=== PATIENT | female | born 1975 | race Caucasian/White ===

== ENCOUNTER 2023-10-02 23:26 | Inpatient (IN) | payer OTHER, SELFPAY ==
[2023-10-02 18:26] VITALS: BP 134/79
[2023-10-02 18:29] VITALS: BMI 29.8
[2023-10-02 19:08] LABS: % Basophils 1.1 % (0-2); % Eosinophils 5.3 % (0-6); % Immature Granulocytes 0.4 % (0-0.5); % Lymphocytes 20.9 % (20.5-51.1); % Monocytes 7.3 % (1.7-9.3); Absolute Basophils 0.1 10^3/uL (0-0.2); Absolute Eosinophils 0.6 10^3/uL (0-0.7); Absolute Immature Granulocytes 0.1 10^3/uL (0-0.05); Absolute Lymphocytes 2.4 10^3/uL (1.2-3.4); Absolute Monocytes 0.8 10^3/uL (0.1-0.6); Absolute Neutrophils 7.4 10^3/uL (1.4-6.5); Hematocrit 33.7 % (37.0-47.0); Hemoglobin 10.9 g/dL (12.0-16.0); Mean Corp Hgb Conc. 32.3 g/dL (33.0-37.0); Mean Corpuscular Hgb 27.6 pg (27.0-31.0); Mean Corpuscular Volume 85.3 fL (81.0-99.0); Nucleated Red Blood Cells % 0 %; Platelet Count 440 10^3/uL (130-400); Red Blood Cell Count 3.95 10^6/uL (4.20-5.40); Red Cell Dist. Width 13.9 % (11.5-14.5); White Blood Cell Count 11.4 10^3/uL (4.8-10.8)
[2023-10-02 19:20] LABS: Lactic Acid 1.6 mmol/L (0.7-2.0)
[2023-10-02 19:22] LABS: ALT (SGPT) 23 U/L (0-35); AST (SGOT) 22 U/L (14-36); Albumin 4.1 g/dl (3.5-5.0); Alkaline Phosphatase 106 U/L (38-126); Blood Urea Nitrogen 11 mg/dl (7-17); Carbon Dioxide 25 mmol/L (22-30); Chloride 102 mmol/L (98-107); Estimated Creatinine Clearance 95 ml/min; Glucose 150 mg/dl (70-99); Potassium 4.1 mmol/L (3.5-5.1); Sodium 134 mmol/L (135-145); Total Bilirubin 0.4 mg/dl (0.2-1.3); Total Protein 7.1 g/dl (6.3-8.2); eGFR > 60.00
--- NOTE | 2023-10-02 22:12 | ED.GENMED ---
History of Present Illness
<KENRICK Daugherty - Last Filed: 10/02/23 22:35>
General
Chief Complaint: Skin Problem
Source: patient and significant other
Exam Limitations: none
Time Seen by Provider: 10/02/23 21:57
Nursing documentation reviewed up to this point in time: agreed with
Travel History
Have you had any contact with someone who has COVID-19?: No
Do you have any symptoms of coronavirus? Fever > 100 degrees, chills, cough, shortness of breath, sore throat, loss of taste or smell, muscle aches, or headache?: No
History of Present Illness
History of Present Illness:
This is a 48 year old female with a PMH of breast cancer and right sided mastectomy presenting to the ED with her complaining of surgical site pain. Pt states she was diagnosed with R sided breast cancer in late May 2023 and she had her
mastectomy on 09/05/23 and her first 2 weeks of recovery went well. She notes last week she began having increasing soreness around her SEVERINO drain site. The pain began to worsen over a couple of days making it difficult for her to move. Pt states she
was started on Bactrim last Saturday (5 days ago) and saw her plastic surgeon this AM. Plastics tried to 'drain the site' but were unable to do so and recommended patient go to the [facility] for IV Antibiotics. Pt states she came here due to the
proximity of her home and she has had prior bad experiences with the [facility]. Pt has been taking Gabapentin daily and tylenol around the clock. Her last dose was at 5pm today. Pt is also have mid chest pain and thinks her wire coating operator metal might have
shifted. She denies any fever, chills, SOB, drainage from the surgical site, itching, abdominal pain, or vomiting.
Pt has a history of blood clots (4 years ago) for which she was on eliquis. She denies tobacco or alcohol use and uses medical marijuana but she has not taken it recently.
Past History
<KENRICK Daugherty - Last Filed: 10/02/23 22:35>
Past History
ED Past Medical History: Asthma, Cancer (R sided breast cancer), Psychiatric (ADHD, A/D) and Other (PE, migraines, IBS)
ED Past Surgical History: Gynecological (R sided mastectomy) and Tonsilectomy
Patient has exhibited threatening behavior?: No
Social History
Tobacco: Non-smoker
Alcohol: None
Drug: Marijuana
Personal:
Living: with family
Family History
Family History: Diabetes, Hypertension, CAD and Cancer (Mother: breast); Negative Early CAD
Review of Systems
<Arya Cano [facility] - Last Filed: 10/02/23 22:35>
Review of Systems
Allergies reviewed?: Yes
Other source history: family
Constitutional: Reports no symptoms; Denies fever or chills
Respiratory: Reports no symptoms; Denies trouble breathing
Cardiac: Reports no symptoms; Denies chest pain
ABD/GI: Denies abdominal pain or vomiting
Skin: Reports rash; Denies itching
Psychiatric: Reports no symptoms
Phy Exam
<Arya Cano [facility] - Last Filed: 10/02/23 22:35>
General Physical Exam
General Presentation: well appearing and mild distress
General age: appears stated age
General Skin: warm and dry
General Habitus: normal
General Mental: alert
General Hydration: appears well hydrated
ENT Exam
ENT Exam: pharynx normal and normocephalic
Cardiovascular Exam
Cardiovascular Exam: regular rate/rhythm, no edema, no murmur and normal peripheral pulses
Heart Sounds: normal
Pulmonary Exam
Pulmonary Exam: lungs clear, no respiratory distress, no rales, no crackles, no rhonchi, no wheezing and no cough
Oxygen Status: room air
Cough: no cough
Gastrointestinal Exam
Gastrointestinal Exam: normal bowel sounds, non tender, soft and non distended
Palpation: generalized: No tenderness
Neurological Exam
Neurological Exam: alert and oriented x3
Musculoskeletal Exam
Musculoskeletal Exam: no edema
Skin Exam
Skin Exam: warm/dry, erythema, redness, tenderness and warmth
Psychiatric Exam
Psychiatric Exam: normal mood/affect
Course
<KENRICK Daugherty - Last Filed: 10/02/23 22:35>
Orders/Labs/Results
Orders:
Orders
10/02/23 18:48
Complete Blood Count/With Diff Urgent
Comprehensive Metabolic Panel Urgent
Glycohemoglobin (HgbA1c) Urgent
Lactic Acid Q4H
Comment: ON ICE, CANCEL 2ND ORDER IF FIRST LACTIC ACID LEVEL <2
Blood Culture Q30M
[place] Source: Blood/Venous
Specimen Description:
Comment: FROM 2 SEPARATE SITES
10/02/23 22:32
0.9% Sodium Chloride 1000 ml [Nss] 1,000 ml IV BOLUS
Gabapentin [Neurontin] 600 mg PO NOW STA
Ketorolac [Toradol] 30 mg IV NOW STA
10/02/23 22:34
US Breast Right Ltd Urgent
Comment:
Reason For Exam: s/p mastectomy 09/05/23-worsening cellulitis
10/02/23 22:44
CR Chest - 2 Views Urgent
Comment:
Reason For Exam: R mastectomy site cellulitis, R chest pain
10/02/23 23:00
Piperacillin/Tazo 4.5 Gram [Zosyn] 4.5 gram in 100 ml IV NOW
Vancomycin [Vancocin] 2,000 mg 0.9% Sodium Chloride 500 ml [Nss] 500 ml IV NOW
10/02/23 23:13
Add On- LAB Urgent
Tests Added?: HgbA1c
10/02/23 23:32
Blood Culture Q30M
[place] Source: Blood/Venous
Specimen Description:
Comment: FROM 2 SEPARATE SITES
Abnormal Lab Results
10/02/23
18:48
WBC 11.4 H 10^3/uL
(4.8-10.8)
RBC 3.95 L 10^6/uL
(4.20-5.40)
Hgb 10.9 L g/dL
(12.0-16.0)
Hct 33.7 L %
(37.0-47.0)
MCHC 32.3 L g/dL
(33.0-37.0)
Plt Count 440 H 10^3/uL
(130-400)
Abs Immat Gran (auto) 0.1 H 10^3/uL
(0-0.05)
Absolute Neuts (auto) 7.4 H 10^3/uL
(1.4-6.5)
Absolute Monos (auto) 0.8 H 10^3/uL
(0.1-0.6)
Sodium 134 L mmol/L
(135-145)
Glucose 150 H mg/dl
(70-99)
10/02/23 18:48
10/02/23 18:48
Vital Signs
Initial and Last Documented VS:
Initial Vital Signs
Temp Pulse Resp BP Pulse Ox
98.5 F 101 20 134/79 98
10/02/23 18:26 10/02/23 18:26 10/02/23 18:26 10/02/23 18:26 10/02/23 18:26
Last Documented Vital Signs
Temp Pulse Resp BP Pulse Ox
97.6 F 96 18 124/78 95
10/03/23 00:33 10/03/23 00:33 10/03/23 00:33 10/03/23 00:33 10/03/23 00:33
<Lzi Rooney, DO - Last Filed: 10/03/23 01:34>
Orders/Labs/Results
Orders:
Orders
10/02/23 18:48
Complete Blood Count/With Diff Urgent
Comprehensive Metabolic Panel Urgent
Glycohemoglobin (HgbA1c) Urgent
Lactic Acid Q4H
Comment: ON ICE, CANCEL 2ND ORDER IF FIRST LACTIC ACID LEVEL <2
Blood Culture Q30M
[place] Source: Blood/Venous
Specimen Description:
Comment: FROM 2 SEPARATE SITES
10/02/23 22:32
0.9% Sodium Chloride 1000 ml [Nss] 1,000 ml IV BOLUS
Gabapentin [Neurontin] 600 mg PO NOW STA
Ketorolac [Toradol] 30 mg IV NOW STA
10/02/23 22:34
US Breast Right Ltd Urgent
Comment:
Reason For Exam: s/p mastectomy 09/05/23-worsening cellulitis
10/02/23 22:44
CR Chest - 2 Views Urgent
Comment:
Reason For Exam: R mastectomy site cellulitis, R chest pain
10/02/23 23:00
Piperacillin/Tazo 4.5 Gram [Zosyn] 4.5 gram in 100 ml IV NOW
Vancomycin [Vancocin] 2,000 mg 0.9% Sodium Chloride 500 ml [Nss] 500 ml IV NOW
10/02/23 23:13
Add On- LAB Urgent
Tests Added?: HgbA1c
10/02/23 23:32
Blood Culture Q30M
[place] Source: Blood/Venous
Specimen Description:
Comment: FROM 2 SEPARATE SITES
Abnormal Lab Results
10/02/23
18:48
WBC 11.4 H 10^3/uL
(4.8-10.8)
RBC 3.95 L 10^6/uL
(4.20-5.40)
Hgb 10.9 L g/dL
(12.0-16.0)
Hct 33.7 L %
(37.0-47.0)
MCHC 32.3 L g/dL
(33.0-37.0)
Plt Count 440 H 10^3/uL
(130-400)
Abs Immat Gran (auto) 0.1 H 10^3/uL
(0-0.05)
Absolute Neuts (auto) 7.4 H 10^3/uL
(1.4-6.5)
Absolute Monos (auto) 0.8 H 10^3/uL
(0.1-0.6)
Sodium 134 L mmol/L
(135-145)
Glucose 150 H mg/dl
(70-99)
10/02/23 18:48
10/02/23 18:48
Vital Signs
Initial and Last Documented VS:
Initial Vital Signs
Temp Pulse Resp BP Pulse Ox
98.5 F 101 20 134/79 98
10/02/23 18:26 10/02/23 18:26 10/02/23 18:26 10/02/23 18:26 10/02/23 18:26
Last Documented Vital Signs
Temp Pulse Resp BP Pulse Ox
97.6 F 96 18 124/78 95
10/03/23 00:33 10/03/23 00:33 10/03/23 00:33 10/03/23 00:33 10/03/23 00:33
<Liz Rooney, DO - Last Filed: 10/03/23 01:34>
*Radiology
Radiology exam reviewed: preliminary read by ED provider (Chest x-ray shows rounded tissue wire coating operator metal right anterior chest wall. Surgical drain lateral chest wall. Lungs are clear. No pleural effusion.) and radiology read reviewed (Right breast
ultrasound shows mild fluid surrounding the right lateral aspect of the wire coating operator metal which may be postsurgical fluid such as seroma. There is no evidence of abscess. The tissue is diffusely edematous.)
*Pulse Oximetry
Patient hypoxic: no
*Critical Care Note
Total Time (30-74mins, 75-104mins- exclusive of procedures): Not Applicable
ED Attending Note
<KENRICK Daugherty - Last Filed: 10/02/23 22:35>
-
Portions of this chart may have been created with voice recognition software.� Occasional wrong word or��sound alike� substitutions may have occurred due to the inherent limitations of voice recognition software.
<Liz Rooney DO - Last Filed: 10/03/23 01:34>
ED Attending Note
Patient seen and examined by attending physician: Yes
I performed the substantive portion of visit, reviewed & personally made and approve the management plan that is documented in note by myself or BERTRAM.: Yes
I performed a history and physical exam of patient and discussed management with resident, I reviewed resident's note and agree with documented findings and plan of care.: Yes
ED Attending Note:
This is a 48-year-old female who has history of right breast cancer, diagnosed June 2023. She follows with specialist at [facility] and underwent right breast mastectomy with wire coating operator metal placement and axillary lymph node sampling
September 05, 2023. A SEVERINO drain has been present since initial surgery. Patient states for the first 2 weeks she was doing well but over the past 2 weeks she has had increased pain about the mastectomy site with onset of redness at her incision site
that began 5 days ago. She called her surgeon and was started on Bactrim 4 days ago. Despite initiation of oral antibiotic she continues with increasing pain and marked increase in local erythema about the right breast mastectomy site.
She has had increased drainage from her SEVERINO drain approximately 40 to 50 mL/day, primarily clear drainage.
She has not noticed a fever but has been taking Tylenol [id number] for pain. Along with this she has been taking twice daily gabapentin that was started prior to surgery.
She tends to avoid NSAIDs due to history of GERD but notes that she is allowed to take NSAIDs, sparingly and with food.
She denies cough nor shortness of breath but does admit to increased pain right chest wall with deep breath.
No abdominal pain, no nausea nor vomiting, no diarrhea nor constipation.
She was evaluated by PRETZEL PACKER at her plastic surgeons office today. Attempt at needle drainage superior to mastectomy incision was apparently unsuccessful. She was recommended to go to the ER for further evaluation and initiation of IV antibiotics.
Patient admits that she was recommended to go to [facility] but elected to come to [place] due to closer to her home.
She did speak with plastic surgeon on-call this evening around 5 PM, Dr. Dedra Richards, who was aware that patient was heading to [place] and provided contact information #[phone]. Patient's primary plastic surgeon is Dr. Garcia.
48-year-old woman appears her stated age, awake and alert, pleasant, appears in mild distress related to pain. Easily communicative. is accompanying. She is afebrile.
HEENT: Oral mucosa is moist. No rhinorrhea.
Neck is supple, nontender, no adenopathy.
Heart is regular rate and rhythm, no murmur nor rub.
Chest wall: There is a dry and intact horizontal right mastectomy incision with global surrounding erythema, 19 cm in width by 12 cm in height. This area is moderately warm to touch and exquisitely tender to palpation. There is moderate global
firmness, no definitive palpable areas of fluctuance. There is no drainage from the wound. There is mild tenderness to the axilla but no definitive axillary adenopathy and no lymphangitis.
There is a SEVERINO drain exiting right lateral chest wall inferior to the right breast incision site. There is very minimal erythema at SEVERINO drain orifice but no drainage from the site. There is patchy erythema right lateral flank consistent with focal
tape sensitivity.
Abdomen: Soft, nondistended, nontender.
Extremities without clubbing or cyanosis nor edema, peripheral pulses are full and equal, nontender.
Skin is warm and dry, normal color. Good turgor.
No focal neurodeficits, gait is steady.
History and exam most consistent with postop wound infection, cellulitis. Concern for seroma formation/infected seroma thus will send for local ultrasound.
Labs show mildly elevated white blood cell count of 11.4. Mild anemia, hemoglobin of 10.9. Lactic acid normal at 1.6.
Chemistries are unremarkable save for mildly elevated glucose of 150. Patient reports no history of diabetes nor diagnosis of impaired fasting glucose. She was noted to have mildly elevated glucose during ED visit December 2022. Will check hemoglobin
A1c for completeness sake�concern for impaired fasting glucose which would adversely affect healing and increased risk of infection.
As patient has clearly failed outpatient antibiotics she will require IV antibiotics and acute hospitalization.
With recent hospitalization 1 month ago must consider potential MRSA, potential resistant bacteria thus will initiate broad-spectrum antibiotics.
10/02/2023 2308 PM
Return phone call from plastic surgeon from [facility] on-call, Dr. Dedra Richards. She agrees with broad-spectrum antibiotic, Zosyn and vancomycin due to recent hospitalization.
If, at some point, patient requires surgical intervention, recommend transfer to [facility]. Off-hours contact information for plastic surgery as above #[phone]. Contact information for plastics during daytime hours
#[phone]. Patient's primary plastic surgeon is Dr. Garcia.
Discharge Plan
Departure
Patient Disposition: Admit
Date of Disposition: 10/02/23
Time of Disposition: 23:10
Admit to: Med/Surg
Admit to doctor: [facility]
Presentation/result/management discussed w/ accepting MD/DO: Hospitalist
Discharge Problem:
postoperative mastectomy cellulitis
Interventions
Interventions:
*Risk Screen - Suicide Last Done: 10/02/23 18:29
*General Assessment Last Done: 10/03/23 00:18
*Neglect/Abuse Screening Last Done: 10/02/23 18:29
ED- Fall Risk Assessment Last Done: 10/03/23 00:19
*ED COVID-19 Vaccine History Last Done: 10/02/23 18:29
*Nursing Disposition Last Done: 10/03/23 00:18
ED-Skin Assessment Last Done: 10/02/23 22:34
Discharge Date and Time
Discharge Date/Time: 10/03/23 00:19
[2023-10-02 22:29] VITALS: BP 130/74
[2023-10-02] MEDS: TORADOL 30 MG IV (22:36)
[2023-10-02] MEDS: NSS 1000 IV (22:37)
[2023-10-02] MEDS: NEURONTIN 600 MG PO (22:37)
--- NOTE | 2023-10-02 23:32 | HPS.HSE ---
Family Physician
-
Family Physician: PHILIPP Dumont
Chief Complaint
-
breast pain
History of Present Illness
48 year-old female with past medical history of breast cancer status post right-sided mastectomy, ADHD, hypertension, asthma, pulmonary embolism 4 years ago on Eliquis, iron deficiency anemia migraines, IBS, anxiety/depression, GERD, presenting with
right chest wall pain. She was diagnosed with right-sided breast cancer in May 2023 and had mastectomy on 09/05/2023 with inventory control/shipping receiving and her first 2 weeks of recovery went well. 2 weeks ago she noticed pain at the site of the SEVERINO drain and
increased drainage. Pain began to worsen making it difficult for her to move The patient notes that the site of the mastectomy became more red although she has no sensation there. . She was started on Bactrim 5 days ago and saw her plastic
surgeon this morning. Plastic surgeon tried to drain the site but were unable to do so and recommended patient go to the [facility] emergency room for IV antibiotics but decided to come here. She has been taking gabapentin daily. She has some chest
pain and thinks that the inventory control/shipping receiving may have shifted. She denies any fevers or chills, shortness of breath, drainage from surgical site, itching, abdominal pain or vomiting.
She denies smoking or alcohol use. She uses medical marijuana but not recently.
Medical History
Past Medical History
Past Medical History: Reports Other (breast cancer status post right-sided mastectomy, ADHD, hypertension, asthma, pulmonary embolism 4 years ago on Eliquis, iron deficiency anemia migraines, IBS, anxiety/depression, GERD)
Past Surgical History: Reports None
Social History
Tobacco: Non-smoker
Alcohol: None
Drug: None
Family History
Family History: Not pertinent
Allergies / Home Medications
Allergies reflects when Allergies were last updated in [facility].
Home Medications with original date entered in [facility]
Allergy/Medication List:
Allergies
Allergy/AdvReac Type Severity Reaction Status Date / Time
indoor/outdoor hay fever Allergy sneezing/itchy Uncoded 10/02/23 18:30
eyes
pets Allergy sneezing/itchy Uncoded 10/02/23 18:30
eyes
tree fruit Allergy throat Uncoded 10/02/23 18:30
swells
tree nuts Allergy throat Uncoded 10/02/23 18:30
Swelling
Home Medications
amlodipine 5 mg tablet 5 mg PO DAILY Blood pressure 12/19/21
atomoxetine 80 mg capsule (Strattera) 80 mg PO DAILY ADD 12/19/21
buspirone 10 mg tablet 30 mg PO BID anxiety 12/19/21
cetirizine 10 mg tablet 10 mg PO DAILY SKIN CONDITION FROM ALLERGIES 12/20/21
lamotrigine 150 mg tablet (Lamictal) 300 mg PO HS Seizures 12/20/21
levalbuterol tartrate 45 mcg/actuation aerosol inhaler 1 puff PO Q4HPRN PRN SHORTNESS OF BREATH 12/20/21
bupropion HCl 150 mg 24 hr tablet, extended release 150 mg PO DAILY 12/22/21
dexlansoprazole 60 mg capsule,biphase delayed release 60 mg PO DAILY 10/22/22
famotidine 40 mg tablet 40 mg PO DAILY 10/22/22
Review of Systems
-
History Source: Patient
A 12 point ROS was completed and negative except as noted: Yes
Constitutional: Reports No Symptoms
EENT: Reports No Symptoms
Respiratory: Reports No Symptoms
Cardiac: Reports No Symptoms
Abdomen/GI: Reports No Symptoms
: Reports No Symptoms
Musculoskeletal: Reports No Symptoms
Skin: Reports Other (erythema of mastectomy site )
Neurological: Reports No Symptoms
Endocrine: Reports No Symptoms
Hematologic/Lymphatic: Reports No Symptoms
Psych: Reports No Symptoms
Physical Exam
Vital Signs
Vital Signs
Temp Pulse Resp BP Pulse Ox
98.5 F 97 19 130/74 98
10/02/23 18:26 10/02/23 22:45 10/02/23 22:45 10/02/23 22:29 10/02/23 18:26
Physical Exam
General: Well Developed, Well Nourished and No Apparent Distress
HEENT: NormoCephalic, Moist mucous membranes and Atraumatic
Respiratory: Clear
Cardiac: S1/S2 and Regular Rhythm; No Murmur or Rub
GI: Soft, Non Tender, Non Distended and Normal Bowel Sounds; No Organomegaly
Rectal: Deferred by Provider
Musculoskeletal: No Clubbing, No Cyanosis and No Edema
Skin: No Rash
Neuro: Nonfocal/grossly intact
Laboratory Results
-
10/02/23 18:48
10/02/23 18:48
Laboratory Results
Lactic Acid Cancelled 10/02/23 22:45
Total Bilirubin 0.4 mg/dl (0.2-1.3) 10/02/23 18:48
AST 22 U/L (14-36) 10/02/23 18:48
ALT 23 U/L (0-35) 10/02/23 18:48
Alkaline Phosphatase 106 U/L (38-126) 10/02/23 18:48
Data Reviewed
-
Lab Data: Labs Reviewed by me
Old Records: Reviewed
Impression/Plan
-
IMPRESSION:
PLAN:
# Cellulitis of right breast
# Right-sided breast cancer status post recent mastectomy with inventory control/shipping receiving placed/SEVERINO drain
-Breast ultrasound pending
-CXR pending
-ER spoke with plastic surgeon on-call from [facility] who recommended broad-spectrum antibiotics with vancomycin/Zosyn
-Contact information listed in ER note
-Check blood cultures
-Vancomycin/Zosyn
-Tylenol, Toradol, Dilaudid as needed for pain
ADHD
-Continue atomoxetine
Essential hypertension
-Continue amlodipine
Iron deficiency anemia
-Hemoglobin at baseline
Asthma
-Continue inhalers
History of pulmonary embolism
History of migraines
IBS
Anxiety/depression
-Continue buspirone, bupropion
-Continue Lamictal
GERD
-Continue PPI, famotidine
Full code
DVT prophylaxis�Eliquis
Regular diet
[2023-10-02] MEDS: ZOSYN 100 IV (23:36)
[2023-10-03 00:33] VITALS: BP 124/78
[2023-10-03 00:34] VITALS: BMI 30.3
[2023-10-03] MEDS: TYLENOL 650 MG PO ×2 (01:18→15:48)
--- NOTE | 2023-10-03 01:20 | PTCARENOTE ---
Pt arrived to unit from ED and ambulated independently from stretcher to bed. Pt is AAOx3 with 2/10 pain to right abdomen throughout/front of head. VS on admission stable. Pt oriented to room, call brown within reach. PRN Tylenol provided to pt.
Will continue to monitor.
[2023-10-03] MEDS: VANCOCIN 300 MG IV (02:05)
[2023-10-03] MEDS: VANCOCIN 300 ML IV (02:05)
[2023-10-03] MEDS: ZOSYN 50 IV ×3 (05:54→17:13)
[2023-10-03 07:00] VITALS: BP 133/76
[2023-10-03 07:14] LABS: % Eosinophils 8.2 % (0-6); % Immature Granulocytes 0.4 % (0-0.5); % Lymphocytes 26.3 % (20.5-51.1); % Monocytes 8.5 % (1.7-9.3); % Neutrophils 55.6 % (42.2-75.2); Absolute Basophils 0.1 10^3/uL (0-0.2); Absolute Eosinophils 0.8 10^3/uL (0-0.7); Absolute Lymphocytes 2.4 10^3/uL (1.2-3.4); Absolute Monocytes 0.8 10^3/uL (0.1-0.6); Absolute Neutrophils 5.1 10^3/uL (1.4-6.5); Hematocrit 30.3 % (37.0-47.0); Hemoglobin 10.1 g/dL (12.0-16.0); Mean Corp Hgb Conc. 33.3 g/dL (33.0-37.0); Mean Corpuscular Hgb 28.1 pg (27.0-31.0); Mean Corpuscular Volume 84.2 fL (81.0-99.0); Mean Platelet Volume 9.7 fL (7.4-10.4); Nucleated Red Blood Cells % 0 %; Platelet Count 314 10^3/uL (130-400); Red Cell Dist. Width 13.6 % (11.5-14.5); White Blood Cell Count 9.2 10^3/uL (4.8-10.8)
[2023-10-03 07:44] LABS: ALT (SGPT) 19 U/L (0-35); AST (SGOT) 24 U/L (14-36); Albumin 3.3 g/dl (3.5-5.0); Alkaline Phosphatase 103 U/L (38-126); Blood Urea Nitrogen 12 mg/dl (7-17); Calcium 8.4 mg/dl (8.4-10.2); Carbon Dioxide 21 mmol/L (22-30); Chloride 106 mmol/L (98-107); Estimated Creatinine Clearance 112 ml/min; Glucose 86 mg/dl (70-99); Potassium 4.5 mmol/L (3.5-5.1); Sodium 133 mmol/L (135-145); Total Bilirubin 0.4 mg/dl (0.2-1.3); Total Protein 6.1 g/dl (6.3-8.2); eGFR > 60.00
[2023-10-03] MEDS: BUSPAR 30 MG PO ×2 (08:02→21:11)
[2023-10-03] MEDS: ZOFRAN 4 MG IV ×3 (08:02→23:53)
[2023-10-03] MEDS: NORVASC 5 MG PO (08:03)
[2023-10-03] MEDS: NEURONTIN 600 MG PO ×2 (08:03→21:11)
[2023-10-03] MEDS: WELLBUTRIN XL (24 hour extended release) 300 MG PO (08:03)
[2023-10-03] MEDS: PROTONIX 40 MG PO (08:03)
--- NOTE | 2023-10-03 08:49 | PHA.VAN.IN ---
Assessment
- Assessment
Renal Function: Appears similar to baseline
Concomitant Antimicrobials: piperacillin/tazobactam
AUC Dosing Plan
- Dosing Variables
Dosing Weight (kg): 78
Dosing CrCl (ml/min): 112
Vd coefficient (L/kg): 0.7
- Empiric Dosing
Initial / Loading Dose: 1500mg - 10/03 02:05
Maintenance Regimen: Vanc 1250mg Q12H starting at 1800
Estimated AUC (mcg*h/mL): 505
Estimated Peak (mcg*h/mL): 33.2
Estimated Trough (mcg/ml): 12
Estimated Half Life (H): 7.1
- Monitoring
No levels ordered at this time: consider levels in next few days
Pharmacokinetics Vancomycin I
- -
Patient Age: 48
Patient Sex: Female
Vancomycin Day #: 1
Indication: Skin And Soft Tissue
Requesting Provider: Dr. Morales
Pertinent Antimicrobial Allergies:
no pertinent antibiotic allergies
Height / Weight:
Height 5 ft 3 in
Actual Weight 77.61 kg
Pertinent Past Medical History: BMI ~30
- Vital Signs / Lab Results
Temp Pulse Resp BP Pulse Ox
97.5 F 95 18 133/76 97
10/03/23 07:00 10/03/23 07:00 10/03/23 07:00 10/03/23 07:00 10/03/23 07:00
Lab Results - Hematology
10/02/23 10/03/23
18:48 05:57
WBC 11.4 H 9.2
Lab Results - Chemistry
10/02/23 10/03/23
18:48 05:57
BUN 11 12
Creatinine 0.7 0.5 L
Estimated Creat Clear 95 112
Albumin 4.1 3.3 L
10/02/23 10/02/23
18:48 22:45
Lactic Acid 1.6 Cancelled
[2023-10-03 09:24] LABS: Glycohemoglobin (HgbA1c) 6.4 % (4.0-5.6)
--- NOTE | 2023-10-03 12:06 | W.PN.HOSP.TC ---
Today's Communication/Plan
-
see bold
Assessment / Plan
Assessment / Plan
Gen: NAD, AAOx3.
Eyes: EOMI, PERRLA, no scleral icterus.
Neck: supple.
CV: RRR, +S1/S2, no m/r/g.
Resp: CTAB, no rales, wheezes, or rhonchi.
Abd: +BS, soft, NT, ND
Skin: No rashes.
Breast exam deferred
Neuro: CN 2-12 intact, non-focal.
Psych: Normal mood and affect.
R breast U/S: No focal fluid collection to suggest an abscess. Mild fluid along the lateral aspect of the glue mounter operator about the 9:00 position. Infected cells cannot be completely excluded.
CXR: No acute cardiopulmonary process.
Cellulitis of right breast
-h/o Right-sided breast cancer status post recent mastectomy with glue mounter operator placed/SEVERINO drain
-Breast ultrasound above, no abscess
-ER spoke with plastic surgeon on-call from [facility] who recommended broad-spectrum antibiotics with vancomycin/Zosyn, cont
-Contact information listed in ER note
-follow blood cultures
-Tylenol, Toradol, Dilaudid as needed for pain
-c/s ID
Other problems:
ADHD: Continue atomoxetine
Essential hypertension: Continue amlodipine
Iron deficiency anemia: Hb stabnle
Asthma: Continue inhalers
h/o pulmonary embolism
h/o migraines
IBS
Anxiety/depression: Continue buspirone/bupropion/Lamictal
GERD: Continue PPI, famotidine
FULL/Eliquis
Anticipated Discharge: 24 - 48 hours
Subjective/Interval History
-
Date of Service: October 03, 2023
No new complaints.
Objective Data
-
Labs:
Laboratory Results
10/03/23
05:57
WBC 9.2
Hgb 10.1 L
Hct 30.3 L
Plt Count 314 D
Sodium 133 L
Potassium 4.5
Chloride 106
Carbon Dioxide 21 L
BUN 12
Creatinine 0.5 L
Glucose 86
Calcium 8.4
Total Bilirubin 0.4
AST 24
ALT 19
Alkaline Phosphatase 103
Vital Signs:
Vital Signs
Temp Pulse Resp BP Pulse Ox
97.5 F 95 18 133/76 97
10/03/23 07:00 10/03/23 07:00 10/03/23 07:00 10/03/23 07:00 10/03/23 07:00
I&O
10/02/23 10/03/23 10/04/23
06:59 06:59 06:59
Intake Total 830 / 830
Output Total 5 / 5
Balance 825 / 825
--- NOTE | 2023-10-03 12:40 | PTCARENOTE ---
Pt requested some benadryl for SOB/tachycardia with the zosyn. Dr. Cardona ordered the benadryl, by the time I went to give it to the pt, the pt said she 'doesn't feel like she needs the benadryl anymore'. Will continue to monitor.
--- NOTE | 2023-10-03 13:22 | CON.ID ---
Consultation
-
Date/Time Consultation Requested: 10/03/23 12:05
Date/Time Consultation Performed: 10/03/23 13:26
Requesting Provider: Dr Cardona
Performing Provider: Dr Velarde
Reason for Consultation: breast cellulitis
Chief Complaint / Past History
Chief Complaint
breast pain
History of Present Illness
Ms Claire is a 48 year old female with history of breast cancer (dx 05/2023) and R sided mastectomy who presented here for R sided breast surgical site pain. Mastectomy 09/05/23. Then last week increased soreness and redness around the SEVERINO site which
progressively worsened. Thinks global implementation manager moved. No fevers, chills, drainage form the surgical site or itching. She was prescribed bactrim 5 days prior to arrival which she took, saw her plastic surgeon who attempted aspiration but unable to
aspirate anything; she was referred to [facility] ER but presented here.
Since arrival here she has been afebrile, bp stable, WBC initially 11.4 now 9.2, hgb 10.1, plt initially 440 now 314, no initial L shift, there is eosinophilia, cr now 0.5, a1c 6.4, t bili 0.4, ast 24, alt 19, alk phos 103, CXR: clear; breast US: no
definite abscess, mild fluid along the lateral global implementation manager at the 9:00 position, mrsa screen in progress, blood cultures in progress x2 no growth to date, currently on vancomycin and zosyn.
Past History
Additional Past Medical History:
breast cancer status post right-sided mastectomy, ADHD, hypertension, asthma, pulmonary embolism 4 years ago on Eliquis, iron deficiency anemia migraines, IBS, anxiety/depression, GERD
Additional Past Surgical History:
as per hpi
Allergy History:
indoor/outdoor hay fever Allergy (Uncoded 10/02/23 18:30)
sneezing/itchy eyes
pets Allergy (Uncoded 10/02/23 18:30)
sneezing/itchy eyes
tree fruit Allergy (Uncoded 10/02/23 18:30)
throat swells
tree nuts Allergy (Uncoded 10/02/23 18:30)
throat Swelling
Medications Reviewed: Yes
Social History
Tobacco: Non-Smoker
Alcohol: None
Drug: None
Family History
Family History: Not Pertinent
Review of Systems
Review of Systems
General: Negative Fever or Chills
All systems: All other systems were reviewed and were negative
Vital Signs
Temp Pulse Resp BP Pulse Ox
97.5 F 95 18 133/76 97
10/03/23 07:00 10/03/23 07:00 10/03/23 07:00 10/03/23 07:00 10/03/23 07:00
Physical Exam
Physical Exam
Constitutional: No Acute Distress
Cardiovascular: Regular Rate and S1/S2; Negative Murmur or Rub
Pulmonary: Clear and Symmetric; Negative Wheezes, Rales or Rhonchi
Gastrointestinal: Soft, Non Tender, Non Distended and Normal Bowel Sounds
Skin: Warm and Dry; Negative Rash or Jaundice
Wound: Other (surgical site red, warm, swollen, asensate, no dehiscence or drainage)
Lines: Other (drain site is exquisitely tender with any movement - drain output clear)
Lab / Diagnostic Study Results
10/03/23 05:57
10/03/23 05:57
Abs Immat Gran (auto) 0.0 10^3/uL (0-0.05) 10/03/23 05:57
Absolute Neuts (auto) 5.1 10^3/uL (1.4-6.5) 10/03/23 05:57
Absolute Lymphs (auto) 2.4 10^3/uL (1.2-3.4) 10/03/23 05:57
Absolute Monos (auto) 0.8 10^3/uL (0.1-0.6) H 10/03/23 05:57
Absolute Basos (auto) 0.1 10^3/uL (0-0.2) 10/03/23 05:57
Immature Gran % 0.4 % (0-0.5) 10/03/23 05:57
Neutrophils % 55.6 % (42.2-75.2) 10/03/23 05:57
Lymphocytes % 26.3 % (20.5-51.1) 10/03/23 05:57
Monocytes % 8.5 % (1.7-9.3) 10/03/23 05:57
Eosinophils % 8.2 % (0-6) H 10/03/23 05:57
Basophils % 1.0 % (0-2) 10/03/23 05:57
Lactic Acid Cancelled 10/02/23 22:45
Microbiology Results
Micro:
10/03/23 06:27 MRSA Screen - Pending
Nose
10/02/23 23:32 Blood Culture - Pending
Blood/Venous
10/02/23 18:48 Blood Culture - Pending
Blood/Venous
Assessment / Plan
Surgical Site Infection
Possible tissue global implementation manager infection
- mrsa screen switched to PCR
- blood cultures x2 in progress
- esr/crp in the AM
- Patient known to Dr Radha ASHBY who does not have privledges here, will check if plastics available to consult
- continue vancomycin/zosyn at this time - appears to be clinically improving
- follow clinically
Care Review
Plan reviewed with: Physician (Dr Cardona)
[2023-10-03 15:00] VITALS: BP 124/83
--- NOTE | 2023-10-03 15:37 | CM ---
manager process excellence reviewed patient's chart and met with patient and spouse at bedside. Patient is independent with adl's and ambulation, no dme, patient drives, patient has a prescription plan and patient uses [facility] pharmacy.
PCP: Dr. Terrell
Plan; Home when stable, no needs.
--- NOTE | 2023-10-03 16:47 | CON.PS ---
Consultation - Plastic Surgery
Consultation Request
Date/Time Consultation Requested: 10/03/2023
Date/Time Consultation Performed: 10/03/2023
Performing Provider: LUCIA Gonzalez MD
Reason for Consultation: Right breast cellulitis
Medical History
-
Chief Complaint: Right breast cellulitis
History of Present Illness:
48-year-old female who recently underwent mastectomy and immediate reconstruction with tissue expanders by Dr. Garcia at [place]. Has been followed postoperatively with the plastic surgery [place]. Was noted to have redness and swelling of the
right breast. The drain remains in place. She was placed on oral antibiotics and referred to the emergency department for further care. [facility], [facility] care. Ultrasound
was performed showing no focal abscess or fluid collection. She presented with a leukocytosis which is subsequently resolved on IV antibiotics. Infectious diseases following with recommendations accordingly.
Past Medical History
Past Medical History: Cancer
Past Surgical History: Other
Allergies / Home Medications
Allergy/AdvReac Type Severity Reaction Status Date / Time
indoor/outdoor hay fever Allergy sneezing/itchy Uncoded 10/02/23 18:30
eyes
pets Allergy sneezing/itchy Uncoded 10/02/23 18:30
eyes
tree fruit Allergy throat Uncoded 10/02/23 18:30
swells
tree nuts Allergy throat Uncoded 10/02/23 18:30
Swelling
Medication Instructions Recorded Confirmed Type
amlodipine 5 mg tablet 5 mg PO DAILY Blood pressure 12/19/21 10/02/23 History
atomoxetine 80 mg capsule 80 mg PO DAILY ADD 12/19/21 10/02/23 History
(Strattera)
cetirizine 10 mg tablet 10 mg PO QPM SKIN CONDITION FROM 12/20/21 10/02/23 History
ALLERGIES
lamotrigine 150 mg tablet 300 mg PO HS Seizures 12/20/21 10/02/23 History
(Lamictal)
levalbuterol tartrate 45 1 puff PO R Q4HPRN PRN SHORTNESS 12/20/21 10/02/23 History
mcg/actuation aerosol inhaler OF BREATH
dexlansoprazole 60 mg 60 mg PO DAILY 10/22/22 10/02/23 History
capsule,biphase delayed release
famotidine 40 mg tablet 40 mg PO QPM 10/22/22 10/02/23 History
bupropion HCl 300 mg 24 hr tablet, 300 mg PO DAILY 10/02/23 10/02/23 History
extended release
buspirone 30 mg tablet 30 mg PO BID 10/02/23 10/02/23 History
gabapentin 300 mg capsule 600 mg PO BID 10/02/23 10/02/23 History
sulfamethoxazole 800 1 tab PO BID 10/02/23 10/02/23 History
mg-trimethoprim 160 mg tablet
Review of Systems
-
History Source: Patient
Constitutional: Fever
Skin: Other
Physical Exam
Vital Signs
Temp 97.5 F 10/03/23 07:00
Temp route: Oral 10/03/23 07:00
Pulse 90 10/03/23 14:10
Resp Rate 18 10/03/23 07:00
Blood pressure 133/76 10/03/23 07:00
Blood pressure extremity used: Left upper arm 10/03/23 07:00
Position: Lying 10/03/23 07:00
MAP (cuff-Anel Monitor) 91 10/02/23 22:29
SaO2 97 10/03/23 14:10
Oxygen Mode of Delivery Room air 10/03/23 14:10
Can the patient verbally communicate their pain? Yes 10/03/23 15:48
Pain scale ratin 10/03/23 15:48
Actual Weight 171 lb 1.6 oz 10/03/23 00:34
Body Mass Index (BMI) 30.3 10/03/23 00:34
Physical exam:
No acute distress
No increased work of breathing
Right breast with SEVERINO drain in place, drain output sero-fibrinous
Routine surgical incisional healing
Cellulitis is present diffusely around the right breast, blanching
Lab Results
10/03/23 05:57
10/03/23 05:57
Assessment / Plan
-
Right breast cellulitis after immediate ski lift mechanic reconstruction and SSmstx.
-IV abx and monitor for clinical improvement
-Drain remains, therefor minimal periprosthetic fluid at present
-Discussed potential removal without clinical improvement
She will consider her options. Will likely trial p.o. antibiotics and follow-up with Dr. Garcia for further management.
Data Reviewed
-
Ultrasound: Report Reviewed by me
Labs: Labs Reviewed by me
[2023-10-03] MEDS: PEPCID 40 MG PO (17:13)
[2023-10-03] MEDS: ZYRTEC 10 MG PO (17:13)
[2023-10-03] MEDS: VANCOCIN 275 MG IV (18:14)
[2023-10-03] MEDS: LAMICTAL 300 MG PO (21:11)
[2023-10-03 23:34] VITALS: BP 127/77
[2023-10-04 00:34] VITALS: BP 127/77
[2023-10-04] MEDS: ZOSYN 50 IV ×5 (00:34→23:07)
[2023-10-04] MEDS: TYLENOL 650 MG PO (03:57)
[2023-10-04] MEDS: ZOFRAN 4 MG IV ×3 (06:01→19:01)
--- NOTE | 2023-10-04 06:47 | W.PN.HOSP.TC ---
Today's Communication/Plan
-
see bold
Assessment / Plan
Assessment / Plan
Gen: NAD, AAOx3.
Eyes: EOMI, PERRLA, no scleral icterus.
Neck: supple.
CV: remains RRR, +S1/S2, no m/r/g.
Resp: remains CTAB, no rales, wheezes, or rhonchi.
Abd: +BS, soft, NT, ND
Skin: No rashes.
Breast exam deferred
Neuro: CN 2-12 intact, non-focal.
Psych: Mildly anxious
10/02/23 23:32 Blood/Venous Blood Culture - Preliminary
No Growth in 24 hours- Final report to follow
10/02/23 18:48 Blood/Venous Blood Culture - Preliminary
No Growth in 24 hours- Final report to follow
10/03/23 06:27 Nose Nasal Screen MRSA (PCR) - Final
MRSA not detected - performed by PCR methodology.
R breast U/S: No focal fluid collection to suggest an abscess. Mild fluid along the lateral aspect of the senior adults director about the 9:00 position. Infected cells cannot be completely excluded.
CXR: No acute cardiopulmonary process.
Cellulitis of right breast
-h/o Right-sided breast cancer status post recent mastectomy with senior adults director placed/SEVERINO drain
-Breast ultrasound above, no abscess
-ER spoke with plastic surgeon on-call from [place] Dr. Dedra Richards who recommended broad-spectrum antibiotics with vancomycin/Zosyn which continue as per ID
-BCxs NGTD
-no need to remove senior adults director at this moment. Plastics following.
-Tylenol, Toradol, Dilaudid as needed for pain
Other problems:
ADHD: Continue atomoxetine
Essential hypertension: Continue amlodipine
Iron deficiency anemia: Hb stable
Asthma: Continue inhalers
h/o pulmonary embolism
h/o migraines
IBS
Anxiety/depression: Continue buspirone/bupropion/Lamictal
GERD: Continue PPI, famotidine
FULL/Lovenox
Anticipated Discharge: 24 - 48 hours
Subjective/Interval History
-
Date of Service: October 04, 2023
Patient reports some right-sided chest pain radiating into her upper abdomen.
Objective Data
-
Vital Signs:
Vital Signs
Temp Pulse Resp BP Pulse Ox
98.1 F 92 16 127/77 96
10/03/23 23:34 10/03/23 23:34 10/03/23 23:34 10/03/23 23:34 10/04/23 03:57
I&O
10/02/23 10/03/23 10/04/23
06:59 06:59 06:59
Intake Total 830 / 830 1440 / 1440
Output Total 45 / 45
Balance 825 / 825 1395 / 1395
[2023-10-04] MEDS: VANCOCIN 275 MG IV (07:19)
[2023-10-04] MEDS: PROTONIX 40 MG PO (07:21)
[2023-10-04] MEDS: BUSPAR 30 MG PO ×2 (07:21→20:29)
[2023-10-04] MEDS: NEURONTIN 600 MG PO ×2 (07:21→20:30)
[2023-10-04] MEDS: NORVASC 5 MG PO (07:21)
[2023-10-04] MEDS: WELLBUTRIN XL (24 hour extended release) 300 MG PO (07:31)
[2023-10-04 08:01] VITALS: BP 127/84
--- NOTE | 2023-10-04 09:25 | W.PN.ID1 ---
Date of Service
Date of Service: October 04, 2023
Today's Communication
- continue zosyn at this time - appears to be clinically improving
- not colonized with mrsa stopped vanc
Assessment / Plan
Surgical Site Infection
Possible tissue forestry fire aid infection
- mrsa screen negative - stopped vancomycin
- blood cultures x2 no growth to date
- esr/crp pending
- appreciate Dr Gonzalez's input
- continue zosyn at this time - appears to be clinically improving
- follow clinically
Chief Complaint
-: Other (surgical site infection)
Subjective / Review of Systems
afebrile
bp stable
esr and crp pending this am
mrsa screen negative
Vital Signs / Physical Exam
Vital Signs
Vital Signs
Temp Pulse Resp BP Pulse Ox
98 F 86 18 127/84 93
10/04/23 08:01 10/04/23 08:01 10/04/23 08:01 10/04/23 08:01 10/04/23 08:01
Physical Exam
Constitutional: No Acute Distress and Comfortable
Cardiovascular: Regular Rate
Pulmonary: Symmetric and Non Labored
Gastrointestinal: Non Tender
Skin: Warm and Dry; Negative Rash or Jaundice
Wound: Other (surgical site less red, no longer warm, skin around the drain minimal erythema now but any movement of drain is markedly tendder)
Objective Data
Lab Data
Lab Results
10/03/23 05:57
10/03/23 05:57
Estimated Creat Clear 112 ml/min 10/03/23 05:57
Lactic Acid Cancelled 10/02/23 22:45
Total Bilirubin 0.4 mg/dl (0.2-1.3) 10/03/23 05:57
AST 24 U/L (14-36) 10/03/23 05:57
ALT 19 U/L (0-35) 10/03/23 05:57
Alkaline Phosphatase 103 U/L (38-126) 10/03/23 05:57
Most recent labs reviewed.
Micro Results:
10/02/23 23:32 Blood Culture - Preliminary
Blood/Venous No Growth in 24 hours- Final report to follow
10/02/23 18:48 Blood Culture - Preliminary
Blood/Venous No Growth in 24 hours- Final report to follow
10/03/23 06:27 Nasal Screen MRSA (PCR) - Final
Nose MRSA not detected - performed by PCR methodology.
[2023-10-04 10:05] LABS: Erythrocyte Sed Rate 62 mm/hour (0-20)
--- NOTE | 2023-10-04 10:17 | CM ---
Chart reviewed, and plan is to home when stable, no needs.
Plan; Home no needs when stable.
[2023-10-04 15:00] VITALS: BP 128/95
[2023-10-04] MEDS: ZYRTEC 10 MG PO (17:04)
[2023-10-04] MEDS: PEPCID 40 MG PO (17:04)
[2023-10-04 17:10] VITALS: BP 128/95
[2023-10-04] MEDS: DILAUDID 0.5 MG IV (18:34)
[2023-10-04 23:06] VITALS: BP 121/74
[2023-10-04] MEDS: LAMICTAL 300 MG PO (23:06)
[2023-10-05] MEDS: ZOFRAN 4 MG IV (06:07)
[2023-10-05] MEDS: ZOSYN 50 IV (06:22)
[2023-10-05] MEDS: TYLENOL 650 MG PO (06:26)
[2023-10-05 07:00] VITALS: BP 116/74
[2023-10-05] MEDS: BUSPAR 30 MG PO (08:26)
[2023-10-05] MEDS: PROTONIX 40 MG PO (08:27)
[2023-10-05] MEDS: NEURONTIN 600 MG PO (08:27)
[2023-10-05] MEDS: WELLBUTRIN XL (24 hour extended release) 300 MG PO (08:27)
[2023-10-05] MEDS: NORVASC 5 MG PO (08:27)
[2023-10-05] MEDS: IMODIUM 2 MG PO (08:58)
--- NOTE | 2023-10-05 11:16 | W.PN.HOSP.TC ---
Addendum entered and electronically signed by Andrey Cardona MD 10/05/23 12:52:
Total time spent on d/c = 32 min. This included today's physical exam, progress note, review of laboratory and diagnostic data, preparation of discharge documents and prescriptions, and discussions about the pt's hospital course and discharge plan
with the patient and other medical unit secretary involved in the patient's care.
Original Note:
Today's Communication/Plan
-
d/c later today if OK with ID.
Assessment / Plan
Assessment / Plan
Gen: NAD, AAOx3.
Eyes: EOMI, PERRLA, no scleral icterus.
Neck: supple.
CV: continues to remain RRR, +S1/S2, no m/r/g.
Resp: continues to remain CTAB, no rales, wheezes, or rhonchi.
Abd: +BS, soft, NT, ND
Skin: No rashes.
Breast exam deferred
Neuro: CN 2-12 intact, non-focal.
Psych: normal mood and affect
10/02/23 23:32 Blood/Venous Blood Culture - Preliminary
No Growth in 48 hours- Final report to follow
10/02/23 18:48 Blood/Venous Blood Culture - Preliminary
No Growth in 48 hours- Final report to follow
10/04/23 11:37 Feces/Stool C. difficile [facility] Antigen & Toxins - Final
Negative for toxigenic C.difficile
10/03/23 06:27 Nose Nasal Screen MRSA (PCR) - Final
MRSA not detected - performed by PCR methodology.
R breast U/S: No focal fluid collection to suggest an abscess. Mild fluid along the lateral aspect of the manager domestic about the 9:00 position. Infected cells cannot be completely excluded.
CXR: No acute cardiopulmonary process.
Cellulitis of right breast
-h/o Right-sided breast cancer status post recent mastectomy with manager domestic placed/SEVERINO drain
-Breast ultrasound above, no abscess
-ER spoke with plastic surgeon on-call from [place] Dr. Dedra Richards who recommended broad-spectrum antibiotics with vancomycin/Zosyn. Pt now off Vanco, Zosyn continues.
-BCxs NGTD
-no need to remove manager domestic at this moment but the plan is for manager domestic removal 10/10/[address] Felix [facility]. Plastics following.
-Tylenol, Toradol, Dilaudid as needed for pain
Other problems:
ADHD: Continue atomoxetine
Essential hypertension: Continue amlodipine
Iron deficiency anemia: Hb stable
Asthma: Continue inhalers
h/o pulmonary embolism
h/o migraines
IBS
Anxiety/depression: Continue buspirone/bupropion/Lamictal
GERD: Continue PPI, famotidine
FULL/Lovenox
Anticipated Discharge: Today
Subjective/Interval History
-
Date of Service: October 05, 2023
No new complaints.
Objective Data
-
Vital Signs:
Vital Signs
Temp Pulse Resp BP Pulse Ox
97.8 F 89 16 116/74 96
10/05/23 07:00 10/05/23 07:00 10/05/23 07:00 10/05/23 07:00 10/05/23 08:35
I&O
10/04/23 10/05/23 10/06/23
06:59 06:59 06:59
Intake Total 2019 1610 / 1610
Output Total 45 / 45 35 / 35
Balance 1974 1575 / 1575
--- NOTE | 2023-10-05 12:03 | W.PN.ID1 ---
Date of Service
Date of Service: October 05, 2023
Today's Communication
switch to cipro/keflex through , then for remval of device at [facility]
Assessment / Plan
Surgical Site Infection
Possible tissue director chemistry infection
- blood cultures x2 no growth to date
- start ciprofloxacin/keflex through
- checked qtc - 480s acceptable
- stable for dc from ID perspective
Chief Complaint
-: Other (surgical site infection)
Subjective / Review of Systems
afebrile
bp stable
much less tender around the drain
less erythema
tolerating current therapies
Vital Signs / Physical Exam
Vital Signs
Vital Signs
Temp Pulse Resp BP Pulse Ox
97.8 F 89 16 116/74 96
10/05/23 07:00 10/05/23 07:00 10/05/23 07:00 10/05/23 07:00 10/05/23 08:35
Physical Exam
Constitutional: No Acute Distress
Cardiovascular: Regular Rate
Pulmonary: Symmetric and Non Labored
Wound: Other (surgical site much less erythema, drain site no longer tender and minimal redness)
Neurological: Awake
Objective Data
Lab Data
Lab Results
10/03/23 05:57
10/03/23 05:57
ESR 62 mm/hour (0-20) H 10/04/23 08:24
Estimated Creat Clear 112 ml/min 10/03/23 05:57
Lactic Acid Cancelled 10/02/23 22:45
Total Bilirubin 0.4 mg/dl (0.2-1.3) 10/03/23 05:57
AST 24 U/L (14-36) 10/03/23 05:57
ALT 19 U/L (0-35) 10/03/23 05:57
Alkaline Phosphatase 103 U/L (38-126) 10/03/23 05:57
C-Reactive Protein 59.00 mg/L (0.0-10.00) H 10/04/23 08:24
Most recent labs reviewed.
Micro Results:
10/02/23 23:32 Blood Culture - Preliminary
Blood/Venous No Growth in 48 hours- Final report to follow
10/02/23 18:48 Blood Culture - Preliminary
Blood/Venous No Growth in 48 hours- Final report to follow
10/04/23 11:37 C. difficile [facility] Antigen & Toxins - Final
Feces/Stool Negative for toxigenic C.difficile
10/03/23 06:27 Nasal Screen MRSA (PCR) - Final
Nose MRSA not detected - performed by PCR methodology.
Care Review
Plan reviewed with: Physician (Dr Brendan sánchez)
[2023-10-05] MEDS: ZOSYN IV (12:50)
[2023-10-05] MEDS: KEFLEX 500 MG PO (12:54)
[2023-10-05] MEDS: CIPRO 500 MG PO (12:54)
--- NOTE | 2023-10-05 16:01 | W.DCSUMMARY ---
Discharge Summary
Discharge Data
Date of Admission: 10/02/23
Date of Discharge: 10/05/23
-
Pending Results: No
Hospital Course
Primary diagnoses:
Cellulitis of right breast
Right-sided breast cancer status post recent mastectomy with shampoo assistant placement
Secondary diagnoses:
Attention deficit hyperactivity disorder
Essential hypertension
Iron deficiency anemia
Asthma
h/o pulmonary embolism
h/o migraines
Irritable bowel syndrome
Anxiety
Depression
Gastroesophageal reflux disease
Consultants:
Infectious disease
Plastic surgery
Imaging:
R breast U/S: No focal fluid collection to suggest an abscess. Mild fluid along the lateral aspect of the shampoo assistant about the 9:00 position. Infected cells cannot be completely excluded.
CXR: No acute cardiopulmonary process.
Hospital course: 48-year-old female who presented with chief complaint of right breast pain as outlined in the H&P done on admission. Patient was diagnosed with cellulitis of the right breast and was started on vancomycin and Zosyn. She had a
breast ultrasound as above which was without abscess. She was seen by infectious disease and plastic surgery. Her blood cultures were no growth to date. While hospitalized there is not an indication to emergently remove her shampoo assistant but the
patient will have her shampoo assistant removed on 10/10/[address] Felix at [facility]. She was discharged on Keflex and ciprofloxacin at the recommendation of infectious disease.
Discharge Plan
-
Patient Disposition: Home (Routine Discharge)
Discharge Diagnosis/Procedures: Cellulitis right breast
Condition: Good
Diet: Regular
Activity: As tolerated
Driving Restrictions: As prior to admission
Referrals:
Roberto Terrell CRNP [Family Provider] - in less than 1 week
Prescriptions:
New
ciprofloxacin HCl 500 mg Tablet
500 mg PO BID Qty: 14 0RF
cephalexin 500 mg Capsule
500 mg PO QID Qty: 28 0RF
Continued
amlodipine 5 MG tablet
5 mg PO DAILY
atomoxetine [Strattera] 80 MG capsule
80 mg PO DAILY
lamotrigine [Lamictal] 150 MG tablet
300 mg PO HS
levalbuterol tartrate 1 PUFF HFA aerosol inhaler
1 puff PO R Q4HPRN PRN (Reason: SHORTNESS OF BREATH)
cetirizine 10 MG tablet
10 mg PO QPM
famotidine 40 mg Tablet
40 mg PO QPM
dexlansoprazole 60 mg Capsule,Biphase Delayed Releas
60 mg PO DAILY
buspirone 30 mg tablet
30 mg PO BID
gabapentin 300 mg capsule
600 mg PO BID
bupropion HCl 300 mg tablet extended release 24 hr
300 mg PO DAILY
Discontinued
sulfamethoxazole-trimethoprim 800-160 mg tablet
1 tab PO BID
Discharge Orders:
Discharge Patient (As Directed); Ordered 10/05/23
Ordered By: Andrey Cardona
Discharge Date and Time
Discharge Date/Time: 10/05/23 14:01
== END 2023-10-05 14:01 | disposition home or self-care (01) | DRG 863 ==
LOC: 4 WEST ACU 23:26
PROVIDERS: Emergency Medicine; ADMITTING PHYSICIAN Hospitalist; ATTENDING PHYSICIAN Internal Medicine; CONSULT PHYSICIAN Surgery Plastic and Reconstructive Surgery; EMERGENCY PHYSICIAN Emergency Medicine; FAMILY PHYSICIAN Nurse Practitioner Family; OTHER PHYSICIAN Student in an Organized Health Care Education/Training Program
DX: T81.41XA Infection following a procedure, superficial incisional surgical site, initial encounter (principal); L03.313 Cellulitis of chest wall; N61.0 Mastitis without abscess; Y83.8 Other surgical procedures as the cause of abnormal reaction of the patient, or of later complication, without mention of misadventure at the time of the procedure; Y92.9 Unspecified place or not applicable; F90.9 Attention-deficit hyperactivity disorder, unspecified type; G43.909 Migraine, unspecified, not intractable, without status migrainosus; F32.A Depression, unspecified; F41.9 Anxiety disorder, unspecified; J45.909 Unspecified asthma, uncomplicated; K21.9 Gastro-esophageal reflux disease without esophagitis; D50.9 Iron deficiency anemia, unspecified; I10 Essential (primary) hypertension; K58.9 Irritable bowel syndrome, unspecified; Z90.11 Acquired absence of right breast and nipple; Z86.718 Personal history of other venous thrombosis and embolism; Z79.01 Long term (current) use of anticoagulants; Z86.711 Personal history of pulmonary embolism; Z91.018 Allergy to other foods; Z85.3 Personal history of malignant neoplasm of breast
CPT/HCPCS: 71046; 76642; 80053; 83036; 83605; 85025; 85652; 86140; 87040; 87324; 87449; 87641; 93005; 96361; 96365; 96375; 99285

== ENCOUNTER → 2023-12-13 15:07 | Outpatient (REF) | payer OTHER, SELFPAY ==
[2023-12-13 11:25] LABS: % Eosinophils 6.4 % (0-6); % Immature Granulocytes 0.3 % (0-0.5); % Lymphocytes 26.5 % (20.5-51.1); % Monocytes 7.8 % (1.7-9.3); Absolute Basophils 0.1 10^3/uL (0-0.2); Absolute Eosinophils 0.5 10^3/uL (0-0.7); Absolute Monocytes 0.6 10^3/uL (0.1-0.6); Absolute Neutrophils 4.4 10^3/uL (1.4-6.5); Hematocrit 32.2 % (37.0-47.0); Hemoglobin 10.1 g/dL (12.0-16.0); Mean Corp Hgb Conc. 31.4 g/dL (33.0-37.0); Mean Corpuscular Hgb 24.2 pg (27.0-31.0); Mean Corpuscular Volume 77.2 fL (81.0-99.0); Mean Platelet Volume 9.1 fL (7.4-10.4); Nucleated Red Blood Cells % 0 %; Platelet Count 500 10^3/uL (130-400); Red Blood Cell Count 4.17 10^6/uL (4.20-5.40); Red Cell Dist. Width 14.6 % (11.5-14.5); White Blood Cell Count 7.7 10^3/uL (4.8-10.8)
== END ==
LOC: OIDL 15:07
PROVIDERS: ATTENDING PHYSICIAN Internal Medicine Hematology & Oncology
DX: I26.99 Other pulmonary embolism without acute cor pulmonale (principal)
CPT/HCPCS: 85025

== ENCOUNTER → 2024-06-03 15:37 | Outpatient (REF) | payer OTHER, SELFPAY ==
[2024-06-03 15:15] LABS: % Basophils 0.9 % (0-2); % Immature Granulocytes 0.7 % (0-0.5); % Lymphocytes 30.8 % (20.5-51.1); % Monocytes 7.7 % (1.7-9.3); % Neutrophils 53.9 % (42.2-75.2); Absolute Basophils 0.1 10^3/uL (0-0.2); Absolute Eosinophils 0.5 10^3/uL (0-0.7); Absolute Immature Granulocytes 0.1 10^3/uL (0-0.05); Absolute Lymphocytes 2.4 10^3/uL (1.2-3.4); Absolute Monocytes 0.6 10^3/uL (0.1-0.6); Absolute Neutrophils 4.1 10^3/uL (1.4-6.5); Hematocrit 33.1 % (37.0-47.0); Hemoglobin 10.4 g/dL (12.0-16.0); Mean Corp Hgb Conc. 31.4 g/dL (33.0-37.0); Mean Corpuscular Hgb 24.3 pg (27.0-31.0); Mean Corpuscular Volume 77.3 fL (81.0-99.0); Mean Platelet Volume 8.6 fL (7.4-10.4); Platelet Count 514 10^3/uL (130-400); Red Blood Cell Count 4.28 10^6/uL (4.20-5.40); Red Cell Dist. Width 14.8 % (11.5-14.5); White Blood Cell Count 7.7 10^3/uL (4.8-10.8)
== END ==
LOC: OIDL 15:37
PROVIDERS: ATTENDING PHYSICIAN Internal Medicine Hematology & Oncology
DX: I26.99 Other pulmonary embolism without acute cor pulmonale (principal); N92.0 Excessive and frequent menstruation with regular cycle; D50.0 Iron deficiency anemia secondary to blood loss (chronic); C50.911 Malignant neoplasm of unspecified site of right female breast
CPT/HCPCS: 85025